=== PATIENT | female | born 1945 | race Caucasian/White ===

== ENCOUNTER → 2018-07-18 | Outpatient (CLI) | payer OTHER, MEDICAID | LOC: M.RAD 10:40 | DX: M47.816 Spondylosis without myelopathy or radiculopathy, lumbar region (principal); M16.0 Bilateral primary osteoarthritis of hip ==

== ENCOUNTER → 2018-07-28 | Outpatient (CLI) | payer OTHER, MEDICAID | LOC: M.MRI 07-24 16:30 | DX: M47.816 Spondylosis without myelopathy or radiculopathy, lumbar region (principal); M16.0 Bilateral primary osteoarthritis of hip; K21.9 Gastro-esophageal reflux disease without esophagitis ==

== ENCOUNTER → 2018-10-07 | Outpatient (CLI) | payer OTHER, MEDICAID | LOC: M.RAD 09:39 | DX: Z12.31 Encounter for screening mammogram for malignant neoplasm of breast (principal) ==

== ENCOUNTER → 2019-07-07 | Outpatient (CLI) | payer OTHER, MEDICAID | LOC: M.LAB 09:47 | DX: R06.02 Shortness of breath (principal); R07.89 Other chest pain; M81.0 Age-related osteoporosis without current pathological fracture; Z88.8 Allergy status to other drugs, medicaments and biological substances ==

== ENCOUNTER → 2019-08-26 | Outpatient (CLI) | payer OTHER, MEDICAID | LOC: M.ULTRA 08-19 12:56 | DX: R22.31 Localized swelling, mass and lump, right upper limb (principal); R22.1 Localized swelling, mass and lump, neck; Z85.3 Personal history of malignant neoplasm of breast; Z85.53 Personal history of malignant neoplasm of renal pelvis ==

== ENCOUNTER 2019-12-14 11:54 | Emergency (ER) | payer MEDICARE, MEDICAID ==
[~2019-12-14] VITALS: Ht 170.2 cm; Wt 107.0 kg
[2019-12-14] MEDS ORDERED: LIPITOR10 MG PO (12:04)
[2019-12-14] MEDS ORDERED: OMEPRAZOLE40 MG PO (12:04)
[2019-12-14] MEDS ORDERED: NORVASC5 M1 PO (12:04)
[2019-12-14] MEDS ORDERED: COZAAR 25 MG TA25 M1 PO (12:04)
[2019-12-14] MEDS ORDERED: VITAMIN E1000 UNIT PO (12:05)
[2019-12-14] MEDS ORDERED: HUMALOG100 UNIT/1 SUBQ (12:05)
[2019-12-14] MEDS ORDERED: TRAZODONE 150150 M1 PO (12:05)
[2019-12-14] MEDS ORDERED: FISH OIL 1,001000 M3 PO (12:06)
[2019-12-14 12:30] LABS: HEMATOCRIT 38.6 % (37.0-47.0); HEMOGLOBIN 13.4 gm/dL (12.0-15.0); MCH 30.4 pg (26.0-34.0); MCHC 34.7 g/dL (28.0-37.0); MCV 87.6 fL (80.0-100.0); MPV 7.9 fl. (7.2-11.1); NUCLEATED RBCS 0 /100WBC; PLATELET COUNT* 213 thou/uL (150-400); RBC 4.41 mil/uL (4.20-5.00); RDW-CV 17.2 % (10.5-14.5)
[2019-12-14 12:35] LABS: CALCIUM 8.7 mg/dL (8.5-10.1); CREATININE 1.9 mg/dL (0.6-1.3); POTASSIUM 4.2 mmol/L (3.5-5.1)
[2019-12-14 12:45] LABS: ALBUMIN 3.4 g/dL (3.4-5.0); TOTAL BILIRUBIN 0.7 mg/dL (<0.1-1.0); TOTAL PROTEIN 6.6 g/dL (6.4-8.2)
[2019-12-14 13:18] LABS: INFLUENZA A ANTIGEN Negative (Negative); INFLUENZA B ANTIGEN Negative (Negative)
[2019-12-14 13:32] LABS: ABSOLUTE BASOPHILS 0.1 thou/uL (0.0-0.2); ABSOLUTE LYMPHOCYTES 1.7 thou/uL (0.8-5.3); ABSOLUTE MONOCYTES 0.1 thou/uL (0.0-1.2); ABSOLUTE NEUTROPHILS 9.1 thou/uL (1.6-8.1); PLATELET ESTIMATE ADEQUATE
[2019-12-14 13:34] LABS: ANISOCYTOSIS Occasional; MACROCYTES Occasional; MICROCYTES Occasional
[2019-12-14] MEDS ORDERED: VENTOLIN HFA 1818 GM INH (15:39)
[2019-12-14 16:12] VITALS: BP 166/72
--- NOTE | 2019-12-14 17:15 | EKG ---
[place] [address] ELECTROCARDIOGRAM REPORT Name: NOLA LEMOS Room: [facility]#: [id number] Admission: 12/14/19 Attend Phys: Discharge: 12/14/19 Date of : 49 Report #: [id number] THIS REPORT FOR: //name// [facility] ED Test Date: 2019-12-14 Test Time: 12:11:41 Pat Name: NOLA LEMOS Department: Room: Gender: F Dinkey Dispatcher: nj : 1945 Requested By: Cherri Hendrix Order Number: [id number] MD: Dennys Arreguin Measurements Intervals [place] Rate: 94 P: 14 AL: 123 QRS: 1 QRSD: 99 T: 97 QT: 345 QTc: 432 Interpretive Statements Sinus rhythm Nonspecific T abnormalities, lateral leads No previous ECG available for comparison Electronically Signed On 12-14-2019 17:14:19 RN MEDICAL SURGICAL by Dennys Arreguin [email or web address] <ELECTRONICALLY SIGNED> By: Dennys Arreguin MD, [facility] 12/14/19 1714 1211 1211 Dennys Arreguin MD, FACC /EPI
== END 2019-12-14 16:12 | disposition home or self-care (01) ==
LOC: M.ERS 11:54
PROVIDERS: Nurse Practitioner Family
DX: R06.00 Dyspnea, unspecified (principal); R73.9 Hyperglycemia, unspecified; M46.90 Unspecified inflammatory spondylopathy, site unspecified; J44.9 Chronic obstructive pulmonary disease, unspecified; K21.9 Gastro-esophageal reflux disease without esophagitis; I50.9 Heart failure, unspecified; Z88.8 Allergy status to other drugs, medicaments and biological substances; Z90.710 Acquired absence of both cervix and uterus; Z90.89 Acquired absence of other organs; Z86.2 Personal history of diseases of the blood and blood-forming organs and certain disorders involving the immune mechanism

== ENCOUNTER → 2019-12-29 | Outpatient (CLI) | payer MEDICARE, MEDICAID ==
[~2019-12-29] MED LIST: COZAAR 25 MG TA25 M1 PO; FISH OIL 1,001000 M3 PO; HUMALOG100 UNIT/1 SUBQ; LIPITOR10 MG PO; NORVASC5 M1 PO; OMEPRAZOLE40 MG PO; TRAZODONE 150150 M1 PO; VENTOLIN HFA 1818 GM INH; VITAMIN E1000 UNIT PO
--- NOTE | 2019-12-29 15:19 | 2DMMODE ---
[place] [address] 2 D/M-MODE ECHOCARDIOGRAM Name: NOLA LEMOS Room: [facility]#: [id number] Admission: 12/29/19 Attend Phys: Julian Quinn Discharge: Date of : 49 Date of Service: 12/29/19 1518 Report #: [id number] THIS REPORT FOR: //name// APPROVED REPORT Study performed: 12/29/2019 08:54:47 EXAM: Comprehensive 2D, Doppler, and color-flow Echocardiogram Patient Location: Out-Patient BSA: 2.13 HR: 84 bpm BP: 108/60 mmHg Other Information Study Quality: Good Indications Congestive Heart Failure Dyspnea 2D Dimensions IVSd: 11.63 (7-11mm) LVOT Diam: 20.09 (18-24mm) LVDd: 50.59 mm PWd: 11.25 (7-11mm) Ascending Ao: 33.64 (22-36mm) LVDs: 25.56 (25-40mm) Aortic Root: 27.65 mm Volumes Left Atrial Volume (Systole) LA ESV Index: 16.60 mL/m2 Aortic Valve AoV Peak Erich.: 1.32 m/s AO Peak Gr.: 6.97 mmHg LVOT Max P.75 mmHg AO Mean Gr.: 4.15 mmHg LVOT Mean P.34 mmHg LVOT Max V: 1.09 m/s AO V2 VTI: 25.41 cm LVOT Mean V: 0.70 m/s RICARDO (VTI): 2.89 cm2 LVOT V1 VTI: 23.20 cm Mitral Valve E/A Ratio: 0.67 MV Decel. Time: 304.58 ms MV E Max Erich.: 0.62 m/s MV PHT: 88[place]33 [place] [address] 2 D/M-MODE ECHOCARDIOGRAM Name: NOLA LEMOS Room: [facility]#: [id number] Admission: 12/29/19 Attend Phys: Julian Quinn Discharge: Date of : 49 Date of Service: 12/29/19 1518 Report #: [id number] MVA (PHT): 2.49 cm2 TDI E/Lateral E': 6.89 E/Medial E': 8.86 Medial E' Erich.: 0.07 m/s Lateral E' Erich.: 0.09 m/s Pulmonary Valve PV Peak Erich.: 1.11 m/s PV Peak Gr.: 4.92 mmHg Left Ventricle The left ventricle is normal size. There is normal LV segmental wall motion. There is normal left ventricular wall thickness. Left ventricular systolic function is normal. LVEF is 60-65%. Grade I - abnormal relaxation pattern. Right Ventricle The right ventricle is normal size. The right ventricular systolic function is normal. Atria Left atrium is mildly dilated. The right atrium size is normal. Aortic Valve The aortic valve is normal in structure. No aortic regurgitation is present. There is no aortic valvular stenosis. Mitral Valve There is mitral annular calcification. There is no mitral valve regurgitation noted. No evidence of mitral valve stenosis. Tricuspid Valve The tricuspid valve is normal in structure. There is no tricuspid valve regurgitation noted. Pulmonic Valve The pulmonary valve is normal in structure. There is no pulmonic valvular regurgitation. Great Vessels The aortic root is normal in size. IVC is normal in size and collapses >50% with inspiration. Pericardium There [place] [address] 2 D/M-MODE ECHOCARDIOGRAM Name: NOLA LEMOS Room: [facility]#: [id number] Admission: 12/29/19 Attend Phys: Julian Quinn Discharge: Date of : 49 Date of Service: 12/29/19 1518 Report #: [id number] <Conclusion> The left ventricle is normal size. There is normal left ventricular wall thickness. Left ventricular systolic function is normal. LVEF is 60-65%. Grade I - abnormal relaxation pattern. Left atrium is mildly dilated. There is mitral annular calcification. IVC is normal in size and collapses >50% with inspiration. <ELECTRONICALLY SIGNED> By: Dennys Arreguin MD, FACC 12/29/19 1518 17 151 Dennys Arreguin MD, FACC /INF
== END ==
LOC: M.CRD 12-23 08:00
DX: I05.8 Other rheumatic mitral valve diseases (principal); I50.32 Chronic diastolic (congestive) heart failure

== ENCOUNTER → 2020-01-12 | Outpatient (CLI) | payer MEDICARE, MEDICAID | LOC: M.LAB 11:58 | DX: R06.02 Shortness of breath (principal) ==

== ENCOUNTER → 2020-07-20 | Outpatient (CLI) | payer MEDICARE, MEDICAID | LOC: M.RAD 07-19 15:56 | PROVIDERS: ATTEND Family Medicine | DX: R92.1 Mammographic calcification found on diagnostic imaging of breast (principal); N60.02 Solitary cyst of left breast; N63.20 Unspecified lump in the left breast, unspecified quadrant ==

== ENCOUNTER → 2020-10-10 | Outpatient (CLI) | payer MEDICARE, MEDICAID | LOC: M.ULTRA 12:13 | PROVIDERS: ATTEND Family Medicine | DX: M79.89 Other specified soft tissue disorders (principal) ==

== ENCOUNTER → 2020-10-10 | Outpatient (CLI) | payer MEDICARE, MEDICAID | LOC: M.ULTRA 10:24 | PROVIDERS: ATTEND Family Medicine | DX: R22.32 Localized swelling, mass and lump, left upper limb (principal) ==

== ENCOUNTER → 2020-10-20 | Outpatient (CLI) | payer MEDICARE, MEDICAID | LOC: M.MRI 12:50 | PROVIDERS: ATTEND Family Medicine | DX: M67.432 Ganglion, left wrist (principal); M19.032 Primary osteoarthritis, left wrist ==

== ENCOUNTER → 2020-11-14 | Outpatient (CLI) | payer MEDICARE, MEDICAID | LOC: M.RAD 10:25 | PROVIDERS: ATTEND Orthopaedic Surgery | DX: M19.032 Primary osteoarthritis, left wrist (principal); M19.012 Primary osteoarthritis, left shoulder; M85.812 Other specified disorders of bone density and structure, left shoulder ==

== ENCOUNTER → 2020-11-28 | Outpatient (CLI) | payer MEDICARE, MEDICAID | LOC: M.CT 08:33 | PROVIDERS: ATTEND Family Medicine | DX: N20.0 Calculus of kidney (principal); I70.0 Atherosclerosis of aorta; K56.41 Fecal impaction; K44.9 Diaphragmatic hernia without obstruction or gangrene; N30.01 Acute cystitis with hematuria; K57.30 Diverticulosis of large intestine without perforation or abscess without bleeding; R92.2 Inconclusive mammogram; Z90.5 Acquired absence of kidney; Z90.49 Acquired absence of other specified parts of digestive tract; Z90.711 Acquired absence of uterus with remaining cervical stump; Z90.721 Acquired absence of ovaries, unilateral; Z90.722 Acquired absence of ovaries, bilateral ==

== ENCOUNTER → 2021-02-06 | Outpatient (CLI) | payer MEDICARE, MEDICAID | LOC: M.LAB 09:33 | PROVIDERS: ATTEND Orthopaedic Surgery | DX: Z01.812 Encounter for preprocedural laboratory examination (principal); Z20.822 Contact with and (suspected) exposure to COVID-19 ==

== ENCOUNTER → 2021-03-28 | Outpatient (CLI) | payer MEDICARE, MEDICAID ==
[2021-03-28 08:52] LABS: CREATININE 1.6 mg/dL (0.6-1.3)
== END ==
LOC: M.LAB 07:30 → M.MRI 08:30
PROVIDERS: ATTEND Internal Medicine Hematology & Oncology
DX: C64.1 Malignant neoplasm of right kidney, except renal pelvis (principal); N28.1 Cyst of kidney, acquired; K57.30 Diverticulosis of large intestine without perforation or abscess without bleeding

== ENCOUNTER → 2021-04-11 | Outpatient (CLI) | payer MEDICARE, MEDICAID | LOC: M.RAD 11:12 | PROVIDERS: ATTEND Orthopaedic Surgery | DX: M81.8 Other osteoporosis without current pathological fracture (principal) ==

== ENCOUNTER → 2021-05-30 | Outpatient (CLI) | payer MEDICARE, MEDICAID | LOC: M.RAD 09:00 | PROVIDERS: ATTEND Family Medicine | DX: M81.0 Age-related osteoporosis without current pathological fracture (principal); M85.88 Other specified disorders of bone density and structure, other site ==

== ENCOUNTER → 2021-10-24 | Outpatient (CLI) | payer MEDICARE, MEDICAID | LOC: M.MRI 10:40 | PROVIDERS: ATTEND Family Medicine | DX: S76.012A Strain of muscle, fascia and tendon of left hip, initial encounter (principal); S76.011A Strain of muscle, fascia and tendon of right hip, initial encounter; M16.12 Unilateral primary osteoarthritis, left hip; M25.552 Pain in left hip; X58.XXXA Exposure to other specified factors, initial encounter; Y93.89 Activity, other specified; Y92.89 Other specified places as the place of occurrence of the external cause; Y99.8 Other external cause status ==

== ENCOUNTER → 2022-01-10 | Outpatient (CLI) | payer MEDICARE, MEDICAID | LOC: M.RAD 01-02 10:30 | PROVIDERS: ATTEND Nurse Practitioner Family | DX: Z12.31 Encounter for screening mammogram for malignant neoplasm of breast (principal); N64.89 Other specified disorders of breast ==